=== PATIENT | female | born 1990 | race Caucasian/White ===

== ENCOUNTER 2024-12-20 16:31 | Emergency (ER) | payer OTHER, SELFPAY ==
--- OUTSIDE RECORDS SUMMARY | 2024-12-15 06:30 | XMS_ITS ---
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 Name Role Phone Yamilka Pop Primary Care Provider REASON FOR VISIT 3m weight loss Social History Sex Assigned At : Social History Observation Description Sex Assigned At Female Encounters Encounter Location Date Provider Diagnosis [address] [id number] 12/15/2024 Yamilka Pop Plan Of Treatment No Information Progress Notes * Jessica CERNA MDOB: 3 (34 yo F)Acc No.[id number]:12/15/2024 Medical Note Patient: Jessica TOMPKINS Provider: Corina Pop APRN, FNP-C :1990 A ge:34 Y S ex:Female Date:12/15/2024 Address:[address] [place] [address] [id number] Subjective: * Chief Complaints: * 1 . 3m weight loss. * Medical History: Objective: * Vitals: Assessment: Plan: * Treatment: * Billing Information: * Visit Code: * Procedure Codes: * Electronic signature of CHARITO Kat on 12/20/2024 at 05:34 PM EDT Sign off status: Pending * Provider: Corina Pop APRN, FNP-C Date: 0 12/15/2024 Generated for Cassi lay/Tori/eTransmitting on: 0 12/20/2024 05:34 PM EDT
[2024-12-20 16:42] VITALS: BP 107/71; PULSE 95; TEMP 37.2; O2SAT 97; BMI 39.9
--- OUTSIDE RECORDS SUMMARY | 2024-12-20 17:35 | XMS_ITS | Clinical Summary ---
Author Organization [facility] tem Address [id number] 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 Medications * This document contains information received from the source organization and may not represent a complete record from that organization. fluticasone propionate (FLONASE) 50 mcg/actuation nasal spray 2 08/28/19 19 Active loratadine (CLARITIN) 10 mg tablet 2 08/28/19 19 Active hydrOXYzine (ATARAX) 50 mg tablet Take 1 tablet (50 mg total) by mouth in the morning and 1 tablet (50 mg total) at noon and 1 tablet (50 mg total) in the evening. Active albuterol (PROVENTIL HFA;VENTOLIN HFA) 90 mcg/actuation inhalerIndications :COVID Inhale 2 puffs every 4 (four) hours as needed for wheezing. 18 g 10/29/19 22 Active ergocalciferol (DRISDOL) 1,250 mcg (50,000 unit) capsule Take 1 capsule (50,000 Units total) by mouth once a week. Active lamoTRIgine (LaMICtal) 25 mg tablet Take 1 tablet (25 mg total) by mouth in the morning. Active lllzjhpo-atav-FH-c alcium &mins (THERAGRAN-M) 9 mg iron-400 mcg tablet Take 1 tablet by mouth in the morning. Active vortioxetine (TRINTELLIX) 10 mg tablet Take 1 tablet (10 mg total) by mouth in the morning. Active ibuprofen (MOTRIN) 800 mg tablet Take 1 tablet (800 mg total) by mouth 3 (three) times a day. 21 tablet 01/05/20 24 Active Additional Information Patient taking differently:800 mg oralEvery 6 hours PRN, Reported on 06/15/2024 ARIPiprazole (ABILIFY) 2 mg tablet Take 5 tablets (10 mg total) by mouth in the morning. 11/28/19 24 Active benztropine (COGENTIN) 1 mg tablet Take 1 tablet (1 mg total) by mouth in the morning and 1 tablet (1 mg total) before bedtime. 11/29/19 24 Active cetirizine (ZyrTEC) 10 mg tablet Take 1 tablet (10 mg total) by mouth daily as needed. 11/26/19 24 Active OLANZapine (ZyPREXA) 5 mg tablet Take 1 tablet (5 mg total) by mouth daily as needed. 11/29/19 24 Active lidocaine (LIDODERM) 5 % Place 1 patch on the skin daily. Remove & Discard patch within 12 hours or as directed by MD 30 patch 01/20/20 24 Active lamoTRIgine (LaMICtal) 100 mg tablet Take 1 tablet (100 mg total) by mouth nightly. Active ibuprofen (MOTRIN) 800 mg tablet Take 1 tablet (800 mg total) by mouth 3 (three) times a day. 21 tablet 07/23/19 25 Active metFORMIN (GLUCOPHAGE) 500 mg tablet Take 1 tablet (500 mg total) by mouth daily with breakfast. Active acetaminophen (TYLENOL EXTRA STRENGTH) 500 mg tablet Take 2 tablets (1,000 mg total) by mouth every 6 (six) hours as needed for pain. 30 tablet 09/29/19 25 Active famotidine (PEPCID) 20 mg tablet Take 1 tablet (20 mg total) by mouth in the morning and 1 tablet (20 mg total) before bedtime. 20 tablet 09/29/19 25 Active sucralfate (CARAFATE) 1 gram tablet Take 1 tablet (1 g total) by mouth in the morning and 1 tablet (1 g total) at noon and 1 tablet (1 g total) in the evening. 21 tablet 09/29/19 25 Active ibuprofen (MOTRIN) 800 mg tablet Take 1 tablet (800 mg total) by mouth 3 (three) times a day. 21 tablet 10/15/19 25 Active diclofenac sodium (VOLTAREN) 1 % gel Apply 2 g topically in the morning and 2 g at noon and 2 g in the evening and 2 g before bedtime. 100 g 10/15/19 25 Active acetaminophen (TYLENOL EXTRA STRENGTH) 500 mg tablet Take 2 tablets (1,000 mg total) by mouth every 6 (six) hours as needed for pain. 30 tablet 10/15/19 25 Active ondansetron ODT (ZOFRAN ODT) 4 mg disintegrating tablet Dissolve 1 tablet (4 mg total) on tongue every 8 (eight) hours as needed for nausea for up to 10 doses. 10 tablet 11/28/19 25 Active ondansetron ODT (ZOFRAN ODT) 4 mg disintegrating tablet Dissolve 1 tablet (4 mg total) on tongue every 8 (eight) hours as needed for nausea for up to 10 doses. 10 tablet 10/26/19 22 025 Discontin ued(Dupli fernanda Listing) ondansetron ODT (ZOFRAN ODT) 4 mg disintegrating tablet Dissolve 1 tablet (4 mg total) on tongue 3 (three) times a day as needed for nausea for up to 3 doses. 3 tablet 03/01/20 24 025 Discontin ued(Dupli fernanda Listing) Active Problems Problem Noted Date Diagnosed Date Anxiety 02/10/2024 PTSD (post-traumatic stress disorder) 02/10/2024 Dizziness 03/09/2019 Difficulty hearing 03/09/2019 Bipolar II disorder 07/27/2017 Encounters Date Type Department Care Team Description 12/08/2024 9:59 AM EDT - 12/08/2024 12:25 PM EDT Emergency [facility] - Emergency [address] [place] [address] Rohit Cota MD Panic attack (Primary Dx); Chest pain, unspecified type Discharge Disposition: Home 12/08/2024 Travel 11/27/2024 10:55 AM EDT - 11/27/2024 12:55 PM EDT Emergency [facility] - Emergency [address] [place] [address] Rohit Cota MD Nausea and vomiting, unspecified vomiting type (Primary Dx); Abdominal pain, unspecified abdominal location Discharge Disposition: Home 10/14/2024 4:48 AM EDT - 10/14/2024 5:38 AM EDT Emergency [facility] - Emergency [address] [place] [address] Pelon Veliz MD Pain of right hip (Primary Dx); Acute pain of left shoulder; Acute nonintractable headache, unspecified headache type Discharge Disposition: Home 10/14/2024 Travel 09/28/2024 5:44 PM EDT - 09/28/2024 6:33 PM EDT Emergency [facility] - Emergency [address] [place] [address] Luiz Brandon MD Left upper quadrant pain (Primary Dx); Splenomegaly Discharge Disposition: Home 09/28/2024 Travel 09/27/2024 11:15 PM EDT - 09/28/2024 1:50 AM EDT Emergency [facility] - Emergency [address] [place] [address] Rohit Newell MD Left upper quadrant abdominal pain (Primary Dx); Splenomegaly; Acute cystitis without hematuria; Hypokalemia Discharge Disposition: Home 09/27/2024 Travel from Last 3 Months Family History Medical History Relation Name Comments Alcohol abuse Father Georges Cerna Heart attack Father Georges Cerna Heart disease Father Georges Cerna Breast cancer Maternal Aunt 1 Faina Briana Breast cancer Maternal Aunt 2 Summer Villanueva Diabetes Maternal Grandfather Josf Briana Heart attack Maternal Grandfather Josf Briana Stroke Maternal Grandfather Josf Briana Diabetes Maternal Grandmother Raeann Briana Alcohol abuse Maternal Uncle Kim Gerhary Cancer Maternal Uncle Kim Gerhary liver Robbi Breast Cancer Mother Windy Mosack Breast cancer Mother Windy Mosack Cancer Mother Windy Mosack bone Relation Name Status Comments Father Georges Cerna Maternal Aunt 1 Faina Briana Alive Maternal Aunt 2 Summer Villanueva Alive Maternal Grandfather Josf Briana Maternal Grandmother Raeann Warren Maternal Uncle Kim Espinal Mother Windy Cerna Social History Tobacco Use Types Packs/Day Years Used Date Smoking Tobacco: Every Day Cigarettes 0.5 4 Vaping/E-cigarettes Smokeless Tobacco: Never Tobacco Cessation:Ready to Q uit: Not Asked; Counseling Given: Not Answered Alcohol Use Standard Drinks/Week Comments Not Currently 1 (1 standard drink = 0.6 oz pur e alcohol) occasional Childcare Answer Date Recorded Childcare Unknown 09/08/2018 Employment Answer Date Recorded Employment Unknown 09/08/2018 Hunger Screening Answer Date Recorded Within the past 12 months we worried whether our food would run out before we got money to buy more. Never True 12/08/2024 Within the past 12 months th e food we bought just didn't last and we didn't have money to get more. Never True 12/08/2024 Purpose - Life Answer Date Recorded Purpose and direction in life Unknown Comments No Sex and Gender Information Value Date Recorded Sex Assigned at Not on file Legal Sex Female 5:42 AM EST Gender Identity Not on file Sexual Orientation Not on file Last Filed Vital Signs Vital Sign Reading Time Taken Comments Blood Pressure 122/83 12/08/2024 10:15 AM EDT Pulse 78 12/08/2024 10:15 AM EDT Temperature 36.5 C (97.7 F) 12/08/2024 11:16 AM EDT Respiratory Rate 13 12/08/2024 10:15 AM EDT Oxygen Saturation 98% 12/08/2024 10:15 AM EDT Inhaled Oxygen Concentration - - Weight 126.1 kg (278 lb) 12/08/2024 10:02 AM EDT Height 177.8 cm (5' 10 ) 12/08/2024 10:02 AM EDT Body Mass Index 39.89 12/08/2024 10:02 AM EDT Plan of Treatment Upcoming Encounters Date Type Department Care Team (Late st Contact Info) Description 12/21/2024 1:00 PM EDT Office Visit [facility] Pul[facility] [address] [place] [address] Yuko Chamberlain, AUDIO/VISUAL MANAGER-HAND TUFTER [address] [place] [address], [address] [place] [address] Health Maintenance Due Date Last Done Comments Tobacco Counseling 1992 Depression Screening 2004 Adult BMI Follow Up Plan 2010 DTaP,Tdap and Td Vaccines (6 - Td or Tdap) 05/06/2022 05/06/2012, 06/18/2010, 08/14/2004, Additional history exists COVID-19 Vaccine (3 - 2024-2 6 season) 2024 09/18/2020, 08/23/2020 Influenza Vaccine 11/28/2024 01/04/2019, , 03/04/2012, Additional history exists Adult BMI Screening 12/08/2025 12/08/2024 Tobacco Screening 12/08/2025 12/08/2024 Pap Smear 03/05/2026 03/05/2023, 12/0 09/2022, 04/15/2022, Additional history exists Medical Devices Not on file Procedures Procedure Name Priority Date/Time Associated Diagnosis Comments TROP I, HIGH SENSITIVITY 1 HOUR STAT 12/08/2024 11:19 AM EDT XR CHEST 1 VW STAT 12/08/2024 10:56 AM EDT EXTRA TUBES SST TOP Routine 12/08/2024 1 0:19 AM EDT EXTRA TUBES Routine 12/08/2024 10:19 AM EDT TROPONIN I, HIGH SENSITIVITY 0 HOUR STAT 12/08/2024 10:19 AM EDT TROPONIN I, HIGH SENSITIVITY 0 HOUR STAT 12/08/2024 10:19 AM EDT MAGNESIUM STAT 12/08/2024 10:19 AM EDT D-DIMER STAT 12/08/2024 10:19 AM EDT COMPREHENSIVE METABOLIC PANEL STAT 12/08/2024 10:19 AM EDT CBC WITH AUTO DIFFERENTIAL STAT 12/08/2024 10:19 AM EDT ECG 12-LEAD STAT 12/08/2024 10:04 AM EDT TROP I, HIGH SENSITIVITY 1 HOUR STAT 11/27/2024 12:[address] ABDOMEN AND PELVIS W CONT STAT 11/27/2024 11:54 AM EDT POCT , URINE (NUCG) Routine 11/27/2024 11:25 AM EDT POCT NURSING URINE MACROSCOPIC UA Routine 11/27/2024 11:23 AM EDT ER EXTRA URINE MARBLE STAT 11/27/2024 11:07 AM EDT ER EXTRA URINE CULTURE STAT 11/27/2024 11:07 AM EDT ER EXTRA URINE STAT 11/27/2024 11:07 AM EDT BLUE TOP STAT 11/27/2024 11:04 AM EDT LIPASE STAT Add-on 11/27/2024 11:04 AM EDT RAINBOW DRAW STAT 11/27/2024 11:04 AM EDT TROPONIN I, HIGH SENSITIVITY 0 HOUR STAT 11/27/2024 11:04 AM EDT COMPREHENSIVE METABOLIC PANEL STAT 11/27/2024 11:04 AM EDT CBC WITH AUTO DIFFERENTIAL STAT 11/27/2024 11:04 AM EDT TROPONIN I, HIGH SENSITIVITY 0 HOUR STAT 11/27/2024 11:04 AM EDT ECG 12-LEAD STAT 11/27/2024 10:59 AM EDT POCT , URINE (NUCG) Routine 10/14/2024 5:[address] ABDOMEN AND PELVIS W CONT STAT 09/28/2024 12:22 AM EDT POCT , URINE (NUCG) Routine 09/27/2024 11:46 PM EDT POCT NURSING URINE MACROSCOPIC UA Routine 09/27/2024 11:44 PM EDT ER EXTRA URINE STAT 09/27/2024 11:34 PM EDT ER EXTRA URINE CULTURE STAT 09/27/2024 11:33 PM EDT LAVENDER TOP STAT 09/27/2024 11:32 PM EDT PST TOP STAT 09/27/2024 11:32 PM EDT BLUE TOP STAT 09/27/2024 11:32 PM EDT MONONUCLEOSIS TEST STAT Add-on 09/27/2024 11 :32 PM EDT LIPASE STAT Add-on 09/27/2024 11:32 PM EDT LIVER PANEL STAT Add-on 09/27/2024 11:32 PM EDT BASIC METABOLIC PANEL STAT Add-on 09/27/2024 11:32 PM EDT CBC WITH AUTO DIFFERENTIAL STAT Add-on 09/27/2024 11:32 PM EDT RAINBOW DRAW STAT 09/27/2024 11:32 PM EDT HIGH RISK HPV W/JOLLY Routine 03/05/2023 5:42 AM EST Encounter for screening for malignant neoplasm of cervix Encounter for screening for human papillomavirus (HPV) from Last 3 Months or Most Recently Relevant to Health Maintenance Results * Troponin I, High Sensitivity 1 Hour (12/08/2024 11:19 AM EDT) Only the most recent of2 resultswithin the time period is included. TROPONIN I, HIGH SENSITIVITY <2 <16 ng/L 12/08/2024 11:45 AM EDT [facility] Blood Venous blood / Unknown Venipuncture / Unknown 12/08/2024 11:19 AM EDT 12/08/2024 11:20 AM EDT us Ximena IVERSON LAB BLOOD ORDERABLES Final Result [facility] [address] [place] [address], [place] * X-ray chest 1 view (12/08/2024 10:56 AM EDT) Anatomical Region Laterality Modality Body, Chest N/A Computed Radiogr aphy 12/08/2024 10:5 8 AM EDT Narrative 12/08/2024 10:59 AM EDT CLINICAL HISTORY: Chest pain Comparison: 04/20/2023 Views: 1 view FINDINGS: * No acute infiltrate. No volume loss nor consolidation. There is no pleural effusion, pneumothorax, nor volume loss. Heart and mediastinal structures are unremarkable. Pulmonary vasculature stable. IMPRESSION: * No active disease nor significant change Finalized by Nicholas Beard MD on 12/08/2024 10:59 AM Procedure Note Nicholas Beard MD - 12/08/2024 CLINICAL HISTORY: Chest pain Comparison: 04/20/2023 Views: 1 view FINDINGS: * No acute infiltrate. No volume loss nor consolidation. There is nopleural effusion, pneumothorax, nor volume loss. Heart and mediastinalstructures are unremarkable. Pulmonary vasculature stable. IMPRESSION: * No active disease nor significant change Finalized by Nicholas Beard MD on 12/08/2024 10:59 AM us Ximena IVERSON IMG DIAGNOSTIC IMAGING ORD ERABLES Final Result * Troponin I, High Sensitivity 0 Hour (12/08/2024 10:19 AM EDT) Only the most recent of2 resultswithin the time period is included. TROPONIN I, HIGH SENSITIVITY <2 <16 ng/L 12/08/2024 10:52 AM EDT [facility] Blood Venous blood / Unknown Venipuncture / Unknown 12/08/2024 10:19 AM EDT 12/08/2024 10:25 AM EDT us Ximena Castaneda AUDIO/VISUAL MANAGER-HARVEY LAB BLOOD ORDERABLES Final Result Performing Organization Address City/[facility]/ZIP Co de Phone Number [address] [place] [address], [place] * SST TOP (12/08/2024 10:19 AM EDT) Extra Tube Auto Resulted 12/08/2024 12:01 PM EDT [facility] Blood Venous blood / Unknown 12/08/2024 10:19 AM EDT 12/08/2024 10:26 AM EDT us Rohit Cota MD LAB BLOOD ORDERABLES Final Re sult Performing Organization Address City/[facility]/ZIP Co de Phone Number [address] [place] [address], [place] * CBC auto differential (12/08/2024 10:19 AM EDT) Only the most recent of3 resultswithin the time period is included. WBC 8.8 4 - 11 x10E9/L 12/08/2024 10:30 AM EDT [facility] RBC Count 4.47 3.8 - 5.2 X10E12/L 12/08/2024 10:30 AM EDT [facility] Hemoglobin 12.6 11.7 - 15.5 g/dL 12/08/2024 10:30 AM EDT [facility] Hematocrit 36.9 35 - 47 % 12/08/2024 10:30 AM EDT [facility] MCV 83 80 - 100 fL 12/08/2024 10:30 AM EDT [facility] MCH 28.2 27 - 34 pg 12/08/2024 10:30 AM EDT [facility] MCHC 34.2 32 - 36 g/dL 12/08/2024 10:30 AM EDT [facility] RDW 13.4 11.5 - 15 % 12/08/2024 10:30 AM EDT [facility] Platelet Count 289 150 - 450 X10E9/L 12/08/2024 10:30 AM EDT [facility] MPV 7.7 7 - 12 fL 12/08/2024 10:30 AM EDT [facility] Neutrophils % 66.5 % 12/08/2024 10:30 AM EDT [facility] Lymphocytes % 26.8 % 12/08/2024 10:30 AM EDT [facility] Monocytes % 5.5 % 12/08/2024 10:30 AM EDT [facility] Eosinophils % 0.4 % 12/08/2024 10:30 AM EDT [facility] Basophils % 0.8 % 12/08/2024 10:30 AM EDT [facility] Neutrophils Absolute (A) 5.9 1.5 - 6.6 10*3/uL 12/08/2024 10:30 AM EDT [facility] Lymphocytes Absolute 2.4 1.0 - 3.5 10*3/uL 12/08/2024 10:30 AM EDT [facility] Monocytes Absolute 0.5 0.0 - 0.9 10*3/uL 12/08/2024 10:30 AM EDT [facility] Eosinophils Absolute 0.0 0.0 - 0.4 10*3/uL 12/08/2024 10:30 AM EDT [facility] Basophils Absolute 0.1 0.0 - 0.2 10*3/uL 12/08/2024 10:30 AM EDT [facility] Differential Type AUTOMATED DIFFERENTIAL 12/08/2024 10:30 AM EDT [facility] Blood Venous blood / Unknown Venipuncture / Unknown 12/08/2024 10:19 AM EDT 12/08/2024 10:25 AM EDT us Ximena Castaneda AUDIO/VISUAL MANAGER-HAND TUFTER LAB BLOOD ORDERABLES Final Result Performing Organization Address [facility] de Phone Number [address] [place] [address], [place] * D-Dimer (12/08/2024 10:19 AM EDT) D DIMER <150 1 - 255 ng/mL 12/08/2024 11:09 AM EDT [facility] Comment:Results <255 ng/mL D DU: The presensence of a VTE can safely be excluded with a negative D-Dimer result and Wells score. A negative result doesn't exclude the possibility of DIC. The test should be repeated along with other diagnostic tests if the patient's symptoms persist or worsen. Blood Venous blood / Unknown Venipuncture / Unknown 12/08/2024 10:19 AM EDT 12/08/2024 10:26 AM EDT us Bueno Leonel DE GUZMAN-HAND TUFTER LAB BLOOD ORDERABLES Final Result Performing Organization Address [facility] de Phone Number [address] [place] [address], [place] * Magnesium (12/08/2024 10:19 AM EDT) MAGNESIUM 1.8 1.8 - 2.6 mg/dL 12/08/2024 10:45 AM EDT [facility] Blood Venous blood / Unknown Venipuncture / Unknown 12/08/2024 10:19 AM EDT 12/08/2024 10:25 AM EDT us Ximena Castaneda AUDIO/VISUAL MANAGER-HAND TUFTER LAB BLOOD ORDERABLES Final Result [facility] [address] [place] [address], * (ABNORMAL) Comprehensive metabolic panel (12/08/2024 10:19 AM EDT) Only the most recent of2 resultswithin the time period is included. SODIUM 138 134 - 146 mmol/L 12/08/2024 10:45 AM EDT [facility] POTASSIUM 3.8 3.5 - 5.0 mmol/L 12/08/2024 10:45 AM EDT [facility] CHLORIDE 105 98 - 109 mmol/L 12/08/2024 10:45 AM EDT [facility] CARBON DIOXIDE 23 22 - 32 mmol/L 12/08/2024 10:45 AM EDT [facility] ANION GAP 10 5 - 15 mmol/L 12/08/2024 10:45 AM EDT [facility] BLOOD UREA NITROGEN 11 5 - 23 mg/dL 12/08/2024 10:45 AM EDT [facility] CREATININE 0.94 0.40 - 1.00 mg/dL 12/08/2024 10:45 AM EDT [facility] Comment:METHOD TRACEABLE TO IDMS STANDARD GLUCOSE 103(H) 65 - 99 mg/dL 12/08/2024 10:45 AM EDT [facility] CALCIUM 8.6 8.5 - 10.5 mg/dL 12/08/2024 10:45 AM EDT [facility] TOTAL PROTEIN 6.6 6.0 - 8.0 g/dL 12/08/2024 10:45 AM EDT [facility] ALBUMIN 3.5 3.2 - 5.3 g/dL 12/08/2024 10:45 AM EDT [facility] ALKALINE PHOSPHATASE 73 39 - 130 U/L 12/08/2024 10:45 AM EDT [facility] AST 16 <=41 U/L 12/08/2024 10:45 AM EDT [facility] ALT 16 <=31 U/L 12/08/2024 10:45 AM EDT [facility] BILIRUBIN,TOTAL 0.4 0.3 - 1.2 mg/dL 12/08/2024 10:45 AM EDT [facility] EGFR Non-Race Dependent 83 >=60 ml/min/1.7 3sq.m 12/08/2024 10:45 AM EDT [facility] Comment: eGFR not reported due to non-numeric value for Creatinine. Reported eGFR is based on the CKD-EPI 2020 equation that does not use a race coefficient. Blood Venous blood / Unknown Venipuncture / Unknown 12/08/2024 10:19 AM EDT 12/08/2024 10:25 AM EDT Ximena Castaneda AUDIO/VISUAL MANAGER-HAND TUFTER LAB BLOOD ORDERABLES Final Result Performing Organization Address City/[facility]/ZIP Co de Phone Number [facility] [address] [place] [address], [place] * ECG 12 lead (12/08/2024 10:04 AM EDT) Only the most recent of2 resultswithin the time period is included. 12/08/2024 10:0 4 AM EDT Rohit Cota MD ECG ORDERABLES Final Result Performing Organization Address City/[facility]/ZIP Co de Phone Number [facility] * CT abdomen and pelvis with contrast (11/27/2024 11:54 AM EDT) Only the most recent of2 resultswithin the time period is included. Anatomical Region Laterality Modality Body, Abdomen, Body Covera N/A Compu brendan Tomography 11/27/2024 12:0 6 PM EDT Narrative 11/27/2024 12:[address] ABDOMEN/PELVIS WITH IV CONTRAST HISTORY:Right lower quadrant abdominal pain vomiting, TECHNIQUE: 100 mL of Omnipaque 300 nonionic contrast injected intravenously. Axial images obtained from the lung bases to the pubic symphysis with sagittal and coronal 2D reformatted images. Automated dose reduction techniques utilized. COMPARISON: 09/28/2024 FINDINGS: Lung bases are clear. No pericardial effusion. Liver demonstrates normal morphology without focal suspicious lesion. No biliary ductal dilatation. Gallbladder is surgically absent. The pancreas appears within normal limits. Stable prominent size of the spleen, measuring up to 15 cm in craniocaudal diameter. Kidneys and adrenals appear normal. No urinary collecting system dilatation. Stomach, small bowel and colon appear normal. The appendix is visualized and normal. Abdominal aorta is nonaneurysmal. No retroperitoneal lymphadenopathy. Urinary bladder and pelvic structures appear unremarkable. IUD is present within the uterus. No free intraperitoneal air or fluid collection. Abdominal wall appears unremarkable. No acute osseous abnormality. IMPRESSION: * No acute intraabdominal pathology identified. All CT scans at this facility use dose modulation, iterative reconstruction, and/or weight based dosing when appropriate to reduce radiation dose to as low as reasonably achievable. Finalized by Dulce Soler MD on 11/27/2024 12:12 PM Procedure Note Dulce Soler MD - 11/27/2024 CT ABDOMEN/PELVIS WITH IV CONTRAST HISTORY:Right lower quadrant abdominal pain vomiting, TECHNIQUE: 100 mL of Omnipaque 300 nonionic contrast injected intravenously. Axialimages obtained from the lung bases to the pubic symphysis with sagittaland coronal 2D reformatted images. Automated dose reduction techniquesutilized. COMPARISON: 09/28/2024 FINDINGS: Lung bases are clear. No pericardial effusion. Liver demonstrates normal morphology without focal suspicious lesion. Nobiliary ductal dilatation. Gallbladder is surgically absent. The pancreas appears within normal limits. Stable prominent size of thespleen, measuring up to 15 cm in craniocaudal diameter. Kidneys and adrenals appear normal. No urinary collecting systemdilatation. Stomach, small bowel and colon appear normal. The appendix is visualizedand normal. Abdominal aorta is nonaneurysmal. No retroperitoneal lymphadenopathy. Urinary bladder and pelvic structures appear unremarkable. IUD is presentwithin the uterus. No free intraperitoneal air or fluid collection. Abdominal wall appears unremarkable. No acute osseous abnormality. IMPRESSION: * No acute intraabdominal pathology identified. All CT scans at this facility use dose modulation, iterativereconstruction, and/or weight based dosing when appropriate to reduceradiation dose to as low as reasonably achievable. Finalized by Dulce Soler MD on 11/27/2024 12:12 PM us Corrina Summers AUDIO/VISUAL MANAGER-HAND TUFTER IMG CT ORDERABLES Fin al Result * POCT , urine (11/27/2024 11:25 AM EDT) Only the most recent of3 resultswithin the time period is included. POC Urine Negative Negative, Indeterminate 11/27/2024 11:19 AM EDT [facility] Urine 11/27/2024 11:2 5 AM EDT 11/27/2024 11:19 AM EDT us POINT OF CARE TEST ORDERABLES Fi nal Result Performing Organization Address City/State/[facility] Co de Phone Number [facility] [address] [place] [address], * (ABNORMAL) POCT Nursing Urine Macroscopic UA (11/27/2024 11:23 AM EDT) Only the most recent of2 resultswithin the time period is included. Pathologist [facility] POC Urine Specific [place] 1.020 1.010, 1.015, 1.020, 1.025 11/27/2024 11:13 AM EDT [facility] POC Urine Leukocyte Esterase Moderate(A) Negative 11/27/2024 11:13 AM EDT [facility] POC Urine Nitrite Negative Negative 11/27/2024 11:13 AM EDT [facility] POC Urine pH 7.0 5.0, 6.0, 6.5, 7.0, 7.5, 8.0, 8.5, 5.5 11/27/2024 11:13 AM EDT [facility] POC Urine Protein Negative Negative 11/27/2024 11:13 AM EDT [facility] POC Urine Glucose Negative Negative 11/27/2024 11:13 AM EDT [facility] POC Urine Ketones Negative Negative 11/27/2024 11:13 AM EDT [facility] POC Urine Urobilinogen 0.2 E.U./dL 11/27/2024 11:13 AM EDT [facility] POC Urine Bilirubin Negative Negative 11/27/2024 11:13 AM EDT [facility] POC Urine Blood/HGB Negative Negative 11/27/2024 11:13 AM EDT [facility] Urine 11/27/2024 11:2 3 AM EDT 11/27/2024 11:13 AM EDT us POINT OF CARE TEST ORDERABLES Fi nal Result Performing Organization Address City/[facility]/ZIP Co de Phone Number [address] [place] [address], [place] * Extra Urine [place] (11/27/2024 11:07 AM EDT) Extra Tube Auto Resulted 11/27/2024 1:01 PM EDT [facility] Urine Urine specimen collection, clean catch / Unknown 11/27/2024 11:07 AM EDT 11/27/2024 11:36 AM EDT us Rohit Cota MD URINE ORDERABLES Final Result Performing Organization Address City/[facility] Co de Phone Number [address] [place] [address], [place] * Extra Urine Culture (11/27/2024 11:07 AM EDT) Only the most recent of2 resultswithin the time period is included. Extra Tube Auto Resulted 11/27/2024 1:01 PM EDT [facility] Urine Urine specimen collection, clean catch / Unknown 11/27/2024 11:07 AM EDT 11/27/2024 11:36 AM EDT us Rohit Cota MD URINE ORDERABLES Final Result Performing Organization Address [facility] Co de Phone Number [address] [place] [address], [place] * Extra Urine (11/27/2024 11:07 AM EDT) Only the most recent of2 resultswithin the time period is included. Extra Tube Auto Resulted 11/27/2024 1:01 PM EDT [facility] Urine Urine specimen collection, clean catch / Unknown 11/27/2024 11:07 AM EDT 11/27/2024 11:36 AM EDT us Rohit Cota MD URINE ORDERABLES Final Result Performing Organization Address [facility] de Phone Number [address] [place] [address], [place] * Light Blue Top (11/27/2024 11:04 AM EDT) Only the most recent of2 resultswithin the time period is included. Extra Tube Auto Resulted 11/27/2024 1:01 PM EDT [facility] Blood Venous blood / Unknown Port / Unknown 11/27/2024 11:04 AM EDT 11/27/2024 11:09 AM EDT us Rohit Cota MD LAB BLOOD ORDERABLES Final Re sult Performing Organization Address City/[facility] Co de Phone Number [address] [place] [address], [place] * Lipase (11/27/2024 11:04 AM EDT) Only the most recent of2 resultswithin the time period is included. LIPASE 21 17 - 40 U/L 11/27/2024 11:40 AM EDT [facility] Blood Venous blood / Unknown Port / Unknown 11/27/2024 11:04 AM EDT 11/27/2024 11:09 AM EDT us Corrina Summers APRN-HAND TUFTER LAB BLOOD ORDERABLES Final Result Performing Organization Address City/[facility]/ZIP Co de Phone Number [address] [place] [address], [place] * Lavender Top (09/27/2024 11:32 PM EDT) Extra Tube Auto Resulted 09/28/2024 1:01 AM EDT [facility] Blood Venous blood / Unknown 09/27/2024 11:32 PM EDT 09/28/2024 12:01 AM EDT us Rohit Newell MD LAB BLOOD ORDERABLES Final Resul t Performing Organization Address [facility] Co de Phone Number [address] [place] [address], [place] * PST TOP (09/27/2024 11:32 PM EDT) Extra Tube Auto Resulted 09/28/2024 1:01 AM EDT [facility] Blood Venous blood / Unknown 09/27/2024 11:32 PM EDT 09/28/2024 12:01 AM EDT us Rohit Newell MD LAB BLOOD ORDERABLES Final Resul t Performing Organization Address City/[facility] Co de Phone Number [address] [place] [address], [place] * Mononucleosis test (09/27/2024 11:32 PM EDT) MONO TEST Negative Negative 09/28/2024 1:20 AM EDT [facility] Blood Venous blood / Unknown 09/27/2024 11:32 PM EDT 09/28/2024 12:01 AM EDT us Rohit Newell MD LAB BLOOD ORDERABLES Final Resul t Performing Organization Address [facility] Co de Phone Number [facility] [address] [place] [address], [place] * Liver panel (09/27/2024 11:32 PM EDT) TOTAL PROTEIN 6.6 6.0 - 8.0 g/dL 09/28/2024 1:15 AM EDT [facility] ALBUMIN 3.7 3.2 - 5.3 g/dL 09/28/2024 1:15 AM EDT [facility] BILIRUBIN,TOTAL 0.6 0.3 - 1.2 mg/dL 09/28/2024 1:15 AM EDT [facility] ALKALINE PHOSPHATASE 75 39 - 130 U/L 09/28/2024 1:15 AM EDT [facility] AST 19 <=41 U/L 09/28/2024 1:15 AM EDT [facility] ALT 21 <=31 U/L 09/28/2024 1:15 AM EDT [facility] BILIRUBIN,DIRECT 0.1 <=0.4 mg/dL 09/28/2024 1:15 AM EDT [facility] Blood Venous blood / Unknown 09/27/2024 11:32 PM EDT 09/28/2024 12:01 AM EDT us Rohit Newell MD LAB BLOOD ORDERABLES Final Resul t Performing Organization Address City/[facility] Co de Phone Number [facility] [address] [place] [address], [place] * (ABNORMAL) Basic Metabolic Panel (09/27/2024 11:32 PM EDT) SODIUM 136 134 - 146 mmol/L 09/28/2024 1:15 AM EDT [facility] POTASSIUM 3.4(L) 3.5 - 5.0 mmol/L 09/28/2024 1:15 AM EDT [facility] CHLORIDE 104 98 - 109 mmol/L 09/28/2024 1:15 AM EDT [facility] CARBON DIOXIDE 24 22 - 32 mmol/L 09/28/2024 1:15 AM EDT [facility] ANION GAP 8 5 - 15 mmol/L 09/28/2024 1:15 AM EDT [facility] BLOOD UREA NITROGEN 10 5 - 23 mg/dL 09/28/2024 1:15 AM EDT [facility] CREATININE 1.10(H) 0.40 - 1.00 mg/dL 09/28/2024 1:15 AM EDT [facility] Comment:METHOD TRACEABLE TO IDMS STANDARD GLUCOSE 89 65 - 99 mg/dL 09/28/2024 1:15 AM EDT [facility] CALCIUM 8.8 8.5 - 10.5 mg/dL 09/28/2024 1:15 AM EDT [facility] EGFR Non-Race Dependent 69 >=60 ml/min/1.7 3sq.m 09/28/2024 1:15 AM EDT [facility] Comment: eGFR not reported due to non-numeric value for Creatinine. Reported eGFR is based on the CKD-EPI 2020 equation that does not use a race coefficient. Blood Venous blood / Unknown 09/27/2024 11:32 PM EDT 09/28/2024 12:01 AM EDT us Rohit Newell MD LAB BLOOD ORDERABLES Final Resul t [facility] [address] [facility] [place] [address], * (ABNORMAL) High risk HPV w/jolly (03/05/2023 5:42 AM EST) Hpv specimen type ThinPrep 03/06/2023 5:43 AM EST [facility] Hpv 16 Negative Negative^ Negative 03/07/2023 6:21 AM EST [facility] Hpv 18 Negative Negative^ Negative 03/07/2023 6:21 AM EST [facility] Other high risk hpv Positive(A) Negative^ Negative 03/07/2023 6:21 AM EST [facility] Comment: For the DNA of any or combination of the following HPV types: 31,33,35,45, 52,56,58,59,66 and 68. THINP 03/05/2023 5:42 AM EST 03/06/2023 5:43 AM EST us Francoise Tamez MD LAB BLOOD ORDERABLES Final Resul t [place] [id number] [facility], [place] [address] [facility] [address] [place] [address], [address] [place] [address] from Last 3 Months or Most Recently Relevant to Health Maintenance Insurance [facility] MEDICAID [facility] MEDICAID [facility] MEDICAID WORKERS COMPENSATION Care Teams Mill Operator Relationship Specialty Start Date End Date Services, [place] [id number] [facility] [place] [place] PCP - General Family Medicine 01/05/24
--- OUTSIDE RECORDS SUMMARY | 2024-12-20 17:35 | XMS_ITS | Encounter Summary ---
Author Organization [facility] [employer] s tem Address [id number] [address] [place] [address] Care Team Providers Care Truck Driver Name Role Phone Services, [facility] Primary Care Provider Encounter Details Date Type Department Care Team (Latest Contact Info) Description 12/08/2024 Travel Social History Tobacco Use Types Packs/Day Years Used Date Smoking Tobacco: Every Day Cigarettes 0.5 4 Vaping/E-cigarettes Smokeless Tobacco: Never Alcohol Use Standard Drinks/Week Comments Not Currently [...] on file Sexual Orientation Not on file documented as of this encounter Plan of Treatment Upcoming Encounters Date Type Department Care Team (Late st Contact Info) Description 12/21/2024 1:00 PM EDT Office Visit [facility] Pulmonary/Sleep Medicine [address] [place] [phone] Yuko Chamberlain, BOOKMOBILE LIBRARIAN-AERIAL CROP DUSTER [address] [place] [address], [address] [place] [address] documented as of this encounter Visit Diagnoses Not on filedocumented in this encounter Care Teams Truck Driver Relationship Specialty Start Date End Date [facility], [facility] [address] [place], [place] PCP - General Family Medicine 01/05/24 documented as of this encounter
--- OUTSIDE RECORDS SUMMARY | 2024-12-20 17:35 | XMS_ITS | Encounter Summary ---
Author Organization [employer] s [employer] Address [facility][id number] [address] [place] [address] Care Team Providers Care Bag Loader Machine Operator Name Role Phone Services, [facility] Primary Care Provider Encounter Details Date Type Department Care Team ([facility] st Contact Info) Description 09/09/2021 Telephone [facility] Obstetrics/Gynecology [address] [place] [phone] Apple Vazquez, MRI SUPERVISOR-CN [address] [place], [place] [phone] Social History Tobacco Use Types Packs/Day Years Used Date Smoking Tobacco: Every Day Cigarettes 0.5 4 Vaping/E-cigarettes Smokeless Tobacco: Never Alcohol Use Standard Drinks/Week Comments Yes 0 (1 standard drink = 0.6 oz pur e alcohol) occasional Childcare Answer Date Recorded Childcare Unknown 09/08/2018 Employment Answer Date Recorded Employment Unknown 09/08/2018 Purpose - Life Answer Date Recorded Purpose and direction in life Unknown Comments No Sex and Gender Information Value Date Recorded Sex Assigned at Not on file Legal Sex Female 5:42 AM EST Gender Identity Not on file Sexual Orientation Not on file documented as of this encounter Miscellaneous Notes * Telephone Encounter - Felipa Barbosa - 09/09/2021 10:07 AM EDT Patient called in stating she is 5 days late for her period and has taken two tests that were negative, could you order a beta HCG for her? Please advise. documented in this encounter Plan of Treatment Upcoming Encounters Date Type Department Care Team (Late st Contact Info) Description 12/21/2024 1:00 PM EDT Office Visit [facility] Pulmonary/Sleep Medicine [address] [place] [address] Yuko Chamberlain, MRI SUPERVISOR-BRAKE RELINER [address], [address] [place] [address] documented as of this encounter Visit Diagnoses Not on filedocumented in this encounter Additional Health Concerns Infection Onset Date Last Indicated Resolved Time COVID-19 Rule-Out 07/06/2022 07/06/2022 07/06/2022 5:32 PM EDT COVID-19 Rule-Out 05/09/2023 05/09/2023 05/09/2023 6:43 AM EST Influenza 05/09/2023 05/09/2023 05/16/2023 11:1 2 PM EST documented as of this encounter Care Teams Bag Loader Machine Operator Relationship Specialty Start Date End Date Services, [facility] [address] [place] PCP - General Family Medicine 01/05/24 documented as of this encounter
--- OUTSIDE RECORDS SUMMARY | 2024-12-20 17:35 | XMS_ITS | Encounter Summary ---
Author Organization [facility] Address [address] [place] [address] Care Team Providers Care Margarine Maker Name Role Phone Navdeep Garcia MD Primary Care Provider Encounter Details Date Type Department Care Team (Latest Contact Info) Description 09/17/2012 Anesthesia Historic Record Initial Department Assigned, To Be 1 scan: REGIONAL [EPIDURAL - CONTINUOUS] Social History Tobacco Use Types Packs/Day Years Used Date Smoking Tobacco: Never Comments No Sex and Gender Information Value Date Recorded Sex Assigned at Not on file Legal Sex Female 9:23 AM EST Gender Identity Not on file Sexual Orientation Not on file documented as of this encounter Functional Status * Gait/Transfer impairment? Answer Date of Assessment Author No 09/17/2012 12:00 AM Ines Thompson RN * ADL impairment? Answer Date of Assessment Author No 09/17/2012 12:00 AM Ines Thompson RN documented as of this encounter Plan of Treatment Not on file documented as of this encounter Visit Diagnoses Not on filedocumented in this encounter Care Teams Margarine Maker Relationship Specialty Start Date End Date Navdeep Garcia MD [address] [place] [phone] PCP - General 02/18/10 documented as of this encounter
--- OUTSIDE RECORDS SUMMARY | 2024-12-20 17:35 | XMS_ITS | Encounter Summary ---
Author Organization [facility] Address [address] [place] [address] Care Team Providers Care Management Sme Name Role Phone Navdeep Garcia MD Unavailable [phone] Navdeep Garcia MD Primary Care Provider Encounter Details Date Type Department Care Team (Late st Contact Info) Description 07/06/1998 Office Visit [facility] Internal Medicine [address] [place] [phone] Betty Rosado MD [address] [place] [address] Social History Tobacco Use Types Packs/Day Years Used Date Smoking Tobacco: Never Assessed Comments Unknown Sex and Gender Information Value Date Recorded Sex Assigned at Not on file Legal Sex Female 9:23 AM EST Gender Identity Not on file Sexual Orientation Not on file documented as of this encounter Plan of Treatment Not on file documented as of this encounter Visit Diagnoses Not on filedocumented in this encounter Care Teams Management Sme Relationship Specialty Start Date End Date Navdeep Garcia MD [address] [place] [phone] PCP - Family Practice 08/17/06 0 Navdeep Garcia MD [address] [place] [phone] PCP - General 02/18/10 documented as of this encounter
--- OUTSIDE RECORDS SUMMARY | 2024-12-20 17:35 | XMS_ITS | Clinical Summary ---
Author Organization [facility] Address [address] [place] [address] Care Team Providers Care Slate Picker Name Role Phone Navdeep Garcia MD Primary Care Provider Source Comments The following information is NOT included in Care Everywhere downloads:Psychiatric notes, ECG results, Cardiac Rehab notes, Pulmonary Function notes, data from [employer] (includes but not limited toPregnancy data,audiograms, eye exams, pre-surgical evaluation notes, well-child exam data).[facility] Allergies Active Allergy Reactions Criticality Noted Date Comments No Known Drug Allergies 11/01/1999 Topiramate 05/04/2020 Depth perception is off and anxiety Medications Rexulti 4 MG TABS tablet 1 Active buPROPion ER (WELLBUTRIN XL) 150 MG XL tablet 1 Active busPIRone (BUSPAR) 10 MG tablet 1 Active fluticasone (FLONASE) 50 mcg/act nasal inhaler SHAKE LQ AND U 1 TO 2 SPRAYS IEN D 9 Active hydrOXYzine (ATARAX) 50 MG tablet 1 Active loratadine (CLARITIN) 10 MG tablet TK 1 T PO D PRF ALLERGIES 9 Active nitrofurantoin monohydrate macrocrystal (MACROBID) 100 MG capsule 1 Active ibuprofen (MOTRIN) 800 MG tablet Take 800 mg by mouth. 9 Active omeprazole (PRILOSEC) 20 MG capsule 1 Active oxcarbazepine (TRILEPTAL) 600 MG tablet 1 Active prazosin (MINIPRESS) 1 mg capsule 1 Active amoxicillin (AMOXIL) 500 MG capsule 0 Active chlorhexidine (PERIDEX) 0.12 % oral solution Take 15 mL by mouth 2 times daily. Rinse 15 mL in mouth for 2 minutes two times daily and spit out. Do not swallow. 1 Bottle 1 Active Active Problems Problem Noted Date Diagnosed Date Difficulty hearing 03/09/2019 Dizziness 03/09/2019 Anxiety disorder 07/27/2017 Bipolar II disorder 07/27/2017 Active labor 09/17/2012 Attention deficit hyperactivity disorder (ADHD) 04/15/2002 Overview (07/10/2018): Attention deficit disorder with hyperactivity Acute suppurative otitis med ia without spontaneous rupture of ear drum 10/05/2001 Allergic rhinitis 04/08/2001 Immunizations Immunization Administration Dates Next Due DTP (CVX=01) 06/27/1993,04/25/1993,02/12/1993 DTaP (CVX=20) 11/20/1997,03/13/1994 HPV, quadrivalent (Gardasil 4) (CVX=62) 02/10/2011,09/10/2010 Hep A (peds/adol, 2 dose) (CVX=83) 02/10/2011, Hep B (peds/adol, 3-dose) (CVX=08) 06/27/1993,,1992 Hib, unspecified formulation (CVX=17) ,06/27/1993,04/25/1993,02/12 Influenza, Injectable, MDCK, Quadrivalent, Preservative Free (ECW=570) 01/04/2019 Influenza, injectable, triva lent, preservative (DGA=470) 12/28/2012,02/10/2011 Influenza, unspecified formu lation (CVX=88) 03/04/2012 MMR, Gwfouox-Vlmjm-Czjfzyu (CVX=03) 09/28/2000,1 05/14/1993 Meningococcal conjugate (MCV4,Men-ACWY), Menactra (MCV4P) (BDJ=983) 06/18/2010 [employer] Monovalent (12+ yrs) SARS-COV-2 (COVID-19) vaccine, mRNA, spike protein, LNP, pres. free, 30 mcg/0.3mL dose (KOA=775) 08/23/2020 Polio, oral (OPV) (CVX=02) 11/20/1997,,04/25/1993,02/12 Td (adult), unspecified form ulation (YHQ=889) 08/14/2004 Tdap (LNV=442) 05/06/2012,06/18/2010 Family History Medical History Relation Name Comments Diabetes Mellitus Maternal Grandmother Breast Cancer Mother Cancer Mother marley sarcoma a t age 13. Relation Name Status Comments Maternal Grandmother Mother 2007 Social History Tobacco Use Types Packs/Day Years Used Date Smoking Tobacco: Never Tobacco Cessation:Counseling Given: Yes Comments No Sex and Gender Information Value Date Recorded Sex Assigned at Not on file Legal Sex Female 9:23 AM EST Gender Identity Not on file Sexual Orientation Not on file Last Filed Vital Signs Vital Sign Reading Time Taken Comments Blood Pressure 111/64 05/16/2020 2:00 PM EST Pulse 95 05/16/2020 2:00 PM EST Temperature 36.3 C (97.4 F) 05/16/2020 2:00 PM EST Respiratory Rate 14 05/04/2020 1:08 PM EST Oxygen Saturation 100% 05/04/2020 1:08 PM EST Inhaled Oxygen Concentration - - Weight 131.9 kg (290 lb 12.6 oz) 05/04/2020 1:08 PM EST Height 177.8 cm (5' 10 ) 05/04/2020 1:08 PM EST Body Mass Index 41.72 05/04/2020 1:08 PM EST Plan of Treatment Health Maintenance Due Date Last Done Comments Hepatitis C Antibody 2010 HPV Vaccine (3 - 3-dose series) 05/05/2011 02/10/2011, 09/10/2010 Pap Smear 08/24/2017 08/24/2014, 08/24/2014 Tetanus (Td or Tdap) Booster 05/06/2022 05/06/2012, 06/18/2010, 08/14/2004 COVID-19 Vaccine (3 - 2025-26 season) 2024 09/18/2020, 08/23/2020 Influenza Vaccine (#1) 2024 9, 12/28/2012, 03/04/2012, Additional history exists Shingles (RZV) Vaccine (1 of 2) 2042 Hepatitis B (HBV) Vaccine Completed 1993, 02/12/1993, 1992 Hepatitis A (HAV) Vaccine Completed 02/10/2011, HIV Test Completed 03/04/2012 Tdap Booster Completed 05/06/2012, 06/18/2010 Mammography Discontinued Pneumococcal Vaccine(s) Aged Out No l onger eligible based on patient's age to complete this topic Procedures Procedure Name Priority Date/Time Associated Diagnosis Comments PAP SMEAR Routine 08/24/2014 10:55 AM EDT Vaginal discharge Urinary symptom or sign Abdominal pain, unspecified abdominal location Thoracic back pain, unspecified back pain laterality HIV-1/2 ANTIBODY Routine 03/04/2012 3:42 PM EST Vaginitis and vulvovaginitis, unspecified Supervision of normal first from Last 3 Months or Most Recently Relevant to Health Maintenance Results * PAP SMEAR (08/24/2014 10:55 AM EDT) CP AP TEST RESULT COMPONENT Done 08/24/2014 7:00 PM EDT [facility] ThinPrep (Cervical Thin Prep) 08/24/2014 10:55 AM EDT 08/24/2014 5:09 PM EDT us Nicholas Waters MD EC CP/AP ORDERABLE Final Resu lt [facility] [address] [place] [phone] * HIV-1/2 ANTIBODY (03/04/2012 3:42 PM EST) HIV-1/HIV-2 Antibody Non-Reacti ve (Non Reactive) [facility] BLOOD SPECIMEN / Unknown 03/04/2012 3:42 PM EST Narrative [facility] - 03/04/2012 10:13 PM EST HIV Information: [place] Rev. code 3701.243(E): This information has been disclosed to you from confidential records protected from disclosure by state law. You shall make no further disclosure of this information without the specific, written, and informed release of the individual to whom it pertains, or as otherwise permitted by state law. A general authorization for the release of medical or other information is not sufficient for the purpose of the release of HIV test results or diagnoses. us Nicholas Waters MD EC HIV/HEP/SYPH TESTING Final Result [facility] [address] [place] [phone] from Last 3 Months or Most Recently Relevant to Health Maintenance Insurance [employer] Care Teams Slate Picker Relationship Specialty Start Date End Date Navdeep Garcia MD [address] [place] [phone] PCP - General 02/18/10
--- OUTSIDE RECORDS SUMMARY | 2024-12-20 17:35 | XMS_ITS | Encounter Summary ---
Author Organization [facility] Address [address] [place] [address] Care Team Providers Care Visual Lead Name Role Phone Navdeep Garcia MD Unavailable [phone] Navdeep Garcia MD Primary Care Provider Encounter Details Date Type Department Care Team (Late st Contact Info) Description 07/27/1998 Office Visit [facility] Internal Medicine [address] [place] [phone] Betty Rosado MD [address] [place] [address] Social History Tobacco Use Types Packs/Day Years [...] on filedocumented in this encounter Care Teams Visual Lead Relationship Specialty Start Date End Date Navdeep Garcia MD [address] [place] [phone] PCP - Family Practice 08/17/06 0 Navdeep Garcia MD [address] [place] [phone] PCP - General 02/18/10 documented as of this encounter
--- OUTSIDE RECORDS SUMMARY | 2024-12-20 17:35 | XMS_ITS | Clinical Summary ---
Author Organization [facility] Address [address] [place] [address] Care Team Providers Care Master Glazier Name Role Phone Self Primary Care Provider Unavailabl e Allergies No known active allergies Medications buPROPion XL (WELLBUTRIN XL) 150 mg 24 hr tabletIndicatio ns:Major depressive disorder, recurrent episode, severe, without mention of psychotic behavior Take 1 tablet by mouth once daily. 30 tablet 1 10/20/2014 Active GABAPENTIN (NEURONTIN ORAL) Take by mouth. Active norgestimate 0.25 mg-ethinyl estradiol 35 mcg (SPRINTEC) 0.25-35 mg-mcg per tablet Take 1 tablet by mouth once daily. Active gabapentin (NEURONTIN) 400 mg capsule Take 1 capsule by mouth daily at bedtime. 30 capsule 0 01/16/2015 Active traZODone (DESYREL) 50 mg tablet Take 1 tablet by mouth at bedtime as needed. 30 tablet 0 01/16/2015 Active gabapentin (NEURONTIN) 100 mg capsule Take 1 capsule by mouth once daily. In the morning 30 capsule 0 01/16/2015 Active Active Problems No known active problems Social History Tobacco Use Types Packs/Day Years Used Date Smoking Tobacco: Every Day Alcohol Use Standard Drinks/Week Comments Yes 0 (1 standard drink = 0.6 oz pur e alcohol) socially Area Deprivation Index Answer Date Yousif rded National Score (1-100), lowe r number is lower risk 95 08/29/2023 State Score (1-10), lower number is lower risk 9 08/29/2023 Data from: https://www.neighborhoodatlas.[facility].edu/. Last address used for calculation [address] [place] [address] 08/29/2023 Comments No Sex and Gender Information Value Date Recorded Sex Assigned at Not on file Legal Sex Female 10:03 PM EST Gender Identity Not on file Sexual Orientation Not on file Last Filed Vital Signs Vital Sign Reading Time Taken Comments Blood Pressure 121/59 08/28/2023 3:33 PM EDT Pulse 107 08/28/2023 3:33 PM EDT Temperature 36.5 C (97.7 F) 08/28/2023 3:33 PM EDT Respiratory Rate 20 08/28/2023 3:33 PM EDT Oxygen Saturation 95% 08/28/2023 3:33 PM EDT Inhaled Oxygen Concentration - - Weight 85.9 kg (189 lb 6.4 oz) 01/12/2015 12:30 AM EDT Height 177.8 cm (5' 10 ) 01/12/2015 12:30 AM EDT Body Mass Index 27.18 01/12/2015 12:30 AM EDT Plan of Treatment Health Maintenance Due Date Last Done Comments Anxiety Screening 2010 Depression Screening 2010 HIV Screening 2010 Hepatitis C Screening 2010 HPV Vaccine (3 - 3-dose series) 05/05/2011 1, 09/10/2010 Cervical Cancer Screening 2013 DTaP,Tdap,Td Vaccine (8 - Td or Tdap) 05/06/2022 05/06/2012, 06/18/2010, 08/14/2004, Additional history exists Influenza Vaccine (#1) 2024 9, 12/28/2012, 03/04/2012, Additional history exists Hepatitis B Vaccine Completed 06/27/1993, 02/12/1993, 1992 Insurance [employer] [facility] MEDICAID [facility] MEDICAID Member Subscriber Plan / Payer (Ef fective 2022-Present) Name:Jessica Cerna Relation to Subscriber:Self Name:Jessica Cerna Licha Payer ID:[id number] (NAIC) Group ID:[id number] Type:Medicaid Address: [place] [id number] Care Teams Master Glazier Relationship Specialty Start Date End Date Self PCP - General Family Medicine 03/06/14
--- OUTSIDE RECORDS SUMMARY | 2024-12-20 17:35 | XMS_ITS | Encounter Summary ---
Author Organization [facility] Address [address] [place] [address] Care Team Providers Care Groundskeeper Porter Name Role Phone Navdeep Garcia MD Primary Care Provider Encounter Details Date Type Department Care Team (Late st Contact Info) Description 03/29/2021 Abstract PATIENT ACUITY SCORE Social History Tobacco Use Types Packs/Day Years [...] on filedocumented in this encounter Care Teams Groundskeeper Porter Relationship Specialty Start Date End Date Navdeep Garcia MD [address] [place] [id number] PCP - General 02/18/10 documented as of this encounter
[2024-12-20 17:53] LABS: Glucose Urine UA NEGATIVE (NEGATIVE)
[2024-12-20 18:08] LABS: Cast Seen? NONE SEEN #/LPF (NONE SEEN); Crystals Seen? None Seen #/HPF (None Seen); Urine Culture Indicated YES-FRMC
[2024-12-20 18:42] VITALS: BP 129/80; PULSE 87; O2SAT 99
--- NOTE | 2024-12-20 18:45 | US_ITS ---
The [address] [address] Patient Name: RONIT CELAYA MRN: [id number] date: 1990 Sex: F Assigned Patient Location: ED.MAIN Current Patient Location: ED.MAIN Accession/Order Number: [id number] Exam Date: 12/20/2024 19:40 Report Date: 12/20/2024 21:05 At the request of: ABHIJEET MICHEL Procedure: US pelvis transvaginal Transvaginal pelvic ultrasound INDICATION: Left-sided pelvic pain, history of ovarian cyst COMPARISON: None FINDINGS: Uterus 9.8 x 4.1 x 5.4 cm. Nabothian cysts. IUD within the fundus of the endometrium. Endometrium unremarkable in thickness measuring 6.2 mm. Right right and left ovaries measure 5.6 x 3.8 x 4.2 cm and 3.4 x 2.4 x 3.2 cm respectively. Right sided cysts 2.7 x 2.6 x 2.9 cm in size. Additional right-sided cysts measuring 4.1 x 2.0 x 2.2 cm in size. No evidence of ovarian torsion. US/US pelvis transvaginal IMPRESSION: Negative for ovarian torsion. Right-sided ovarian cysts up to 4.1 cm size, these are likely physiologic. Impression dictated by: Keven Coleman M.D. 12/20/2024 9:05 PM Dictation Location: [place] [address] Electronically authenticated by: [id number] Y Date: 12/20/2024 21:05
[2024-12-20 18:51] LABS: HCG Qualitative Urine* NEGATIVE (NEGATIVE)
[2024-12-20] MEDS: 0.9 % SODIUM CHLORIDE 1,000 ML 100 ML IV (19:09)
[2024-12-20] MEDS: KETOROLAC TROMETHAMINE 30 MG/ML VIAL 15 MG IVP (19:10)
[2024-12-20 19:15] LABS: Hematocrit 39.2 % (36.0-48.0); Hemoglobin 13.4 g/dL (12.0-16.0); Immature Granulocytes Abs Auto 0.03 10^3/uL (0.00-0.03); Immature Granulocytes Pct Auto 0.3 % (0.0-0.5); Lymphocytes Absolute Auto 3.8 10^3/uL (1.2-3.8); Mean Corpuscular HGB Conc 34.2 g/dL (29.9-35.2); Mean Corpuscular Hemoglobin 28.9 pg (26.7-34.0); Mean Corpuscular Volume 84.7 fL (81.0-99.0); Platelet Count 306 10^3/uL (150-450); Red Blood Count 4.63 10^6/uL (4.20-5.40); White Blood Count 10.7 10^3/uL (4.0-11.0)
[2024-12-20 19:33] LABS: Alanine Aminotransferase 31 U/L (14-59); Albumin Globulin Ratio 1.0; Albumin Level 3.3 g/dL (3.4-5.0); Alkaline Phosphatase 76 U/L (46-116); Anion Gap 11.0; Aspartate Amino Transferase 13 U/L (15-37); Blood Urea Nitrogen 10.0 mg/dL (7.0-18.0); Calcium 8.5 mg/dL (8.5-10.1); Carbon Dioxide 25.7 mmol/L (21.0-32.0); Chloride 105 mmol/L (98-107); Estimated GFR (African America >60 (>=60 mL/min/1.73m^2); Estimated GFR (Non-African Ame >60 (>=60 mL/min/1.73m^2); Globulin 3.3 g/dL; Glucose 92 mg/dL (74-106); Potassium 3.7 mmol/L (3.5-5.1); Sodium 138 mmol/L (136-145); Total Protein 6.6 g/dL (6.4-8.2)
--- NOTE | 2024-12-20 21:27 | ED_ITS ---
HPI - Abdominal Pain General Chief Complaint: Abdominal Pain Stated Complaint: ABDOMINAL PAIN/ LIGHT HEADED Time Seen by Provider: 12/20/24 18:38 Source: patient Mode of arrival: walk-in History of Present Illness HPI narrative: 34-year-old female presents to the ED with lower abdominal pain. She has a known history of ovarian cysts but has never had surgery for them. She was supposed to follow up with gynecology but has not yet done so. Patient is and feels confident she is not . She reports mild vaginal discharge, which she describes as baseline, with no foul odor. She denies dysuria, abnormal bowel movements, fever, nausea, or vomiting. Pain does not improve or worsen with position, activity, or oral intake. She expresses concern about possible ovarian torsion. Related Data Allergies Allergy/AdvReac Type Severity Reaction Status Date / Time topiramate Allergy Severe sensory Verified 12/20/24 16:48 problems PFSH PFSH Social History Little interest or pleasure in doing things: not at all Feeling down, depressed, or hopeless: not at all Exam Narrative Exam Narrative: General: Pleasant, alert, and oriented, appears mildly uncomfortable. Vitals: Stable, afebrile. Cardiac/Respiratory: Heart and lung sounds normal. Abdomen: Soft, tender in lower abdomen without rebound or guarding. No distension or peritoneal signs. Pelvic Exam: Deferred at patient?s request as discharge is baseline for her. Extremities/Neuro: Normal strength and sensation. Constitutional Vital Signs, click to edit/add: Last Vital Signs Temp 98.9 F 12/20/24 16:42 Pulse 69 12/20/24 21:32 Resp 14 12/20/24 21:32 BP 124/84 12/20/24 21:32 Pulse Ox 100 12/20/24 21:32 O2 Del Method Room Air 12/20/24 21:32 Course Vital Signs Vital signs: Vital Signs Temperature 98.9 F 12/20/24 16:42 Pulse Rate 95 H 12/20/24 16:42 Respiratory Rate 18 12/20/24 16:42 Blood Pressure 107/71 12/20/24 16:42 Pulse Oximetry 97 12/20/24 16:42 Oxygen Delivery Method Room Air 12/20/24 16:42 Temperature 98.9 F 12/20/24 16:42 Pulse Rate 69 12/20/24 21:32 Respiratory Rate 14 12/20/24 21:32 Blood Pressure 124/84 12/20/24 21:32 Pulse Oximetry 100 12/20/24 21:32 Oxygen Delivery Method Room Air 12/20/24 21:32 MDM - Abdominal Pain MDM Narrative Medical decision making narrative: Differential diagnosis considered included ovarian torsion, ruptured ovarian cyst, pelvic inflammatory disease, urinary tract infection, and nonspecific abdominal pain. Ultrasound revealed ovarian cyst but no torsion, which is reassuring. Urinalysis showed leukocytes and bacteria but is likely contaminated from vaginal leukorrhea given lack of dysuria or systemic symptoms. Urine culture was sent, and patient prefers to wait for results prior to starting antibiotics. CBC, CMP, and H&H were all within normal limits. Patient declined further pain medication. Given reassuring labs, normal vital signs, and lack of torsion or peritoneal signs, patient is stable for discharge. She was advised to follow up with gynecology for ongoing management of ovarian cysts, to return for worsening pain, fever, vomiting, new vaginal discharge, or any other concerning symptoms. Patient verbalized understanding and agreed with plan. Medical Records Attestation: I reviewed the patient's medical records. Lab Data Attestation: I reviewed the patient's lab results. Labs: Lab Results 12/20/24 12/20/24 Range/Units 16:49 19:00 WBC 10.7 (4.0-11.0) 10^3/uL RBC 4.63 (4.20-5.40) 10^6/uL Hgb 13.4 (12.0-16.0) g/dL Hct 39.2 (36.0-48.0) % MCV 84.7 (81.0-99.0) fL MCH 28.9 (26.7-34.0) pg MCHC 34.2 (29.9-35.2) g/dL RDW 12.7 (11.0-15.0) % Plt Count 306 (150-450) 10^3/uL MPV 9.8 (9.5-13.5) fL Neut % (Auto) 56.3 (43.0-75.0) % Lymph % (Auto) 36.0 (20.5-60.0) % [place]bot % (Auto) 5.8 (1.7-12.0) % Eos % (Auto) 0.7 L (0.9-7.0) % Baso % (Auto) 0.9 (0.2-2.0) % Neut # (Auto) 6.0 (1.4-6.5) 10^3/uL Lymph # (Auto) 3.8 (1.2-3.8) 10^3/uL [place]bot # (Auto) 0.6 (0.3-0.8) 10^3/uL Eos # (Auto) 0.1 (0.0-0.7) 10^3/uL Baso # (Auto) 0.1 (0.0-0.1) 10^3/uL Abs Immat Gran (auto) 0.03 (0.00-0.03) 10^3/uL Imm/Tot Granulo (auto) 0.3 (0.0-0.5) % Sodium 138 (136-145) mmol/L Potassium 3.7 (3.5-5.1) mmol/L Chloride 105 (98-107) mmol/L Carbon Dioxide 25.7 (21.0-32.0) mmol/L Anion Gap 11.0 BUN 10.0 (7.0-18.0) mg/dL Creatinine 0.93 (0.55-1.02) mg/dL Est GFR ( Amer) >60 (>=60 mL/min/1.73m^2) Est GFR (Non-Af Amer) >60 (>=60 mL/min/1.73m^2) BUN/Creatinine Ratio 10.8 Glucose 92 (74-106) mg/dL Calcium 8.5 (8.5-10.1) mg/dL Total Bilirubin 0.2 (0.2-1.0) mg/dL AST 13 L (15-37) U/L ALT 31 (14-59) U/L Alkaline Phosphatase 76 (46-116) U/L Total Protein 6.6 (6.4-8.2) g/dL Albumin 3.3 L (3.4-5.0) g/dL Globulin 3.3 g/dL Albumin/Globulin Ratio 1.0 Urine Color Lt. yellow (YELLOW) Urine Clarity Clear (CLEAR) Urine pH 6.0 (5.0-9.0) Ur Specific [place] 1.025 (1.005-1.025) Urine Protein Negative (NEG/TRACE) mg/dL Urine Glucose (UA) Negative (NEGATIVE) mg/dL Urine Ketones Negative (NEGATIVE) mg/dL Urine Occult Blood Negative (NEGATIVE) Urine Nitrite Negative (NEGATIVE) Urine Bilirubin Negative (NEGATIVE) Urine Urobilinogen 0.2 (0.2-1.0) EU/dL Ur Leukocyte Esterase Moderate A (NEGATIVE) Urine RBC 0-2 (0-2) #/HPF Urine WBC 2-5 A (NONE SEEN) #/HPF Ur Squamous Epith Cells Moderate A (NONE/RARE) #/LPF Urine Crystals None seen (None Seen) #/HPF Urine Bacteria Moderate A (NONE SEEN) #/HPF Urine Casts None seen (NONE SEEN) #/LPF Urine Mucus Trace A (NONE SEEN) Ur Culture Indicated? [place] [place] HCG, Qual Negative (NEGATIVE) Imaging Data us pelvis: Attestation: I have reviewed the pertinent imaging results. Radiologist's impression: ITS Impressions Transvaginal US 12/20/24 18:45 IMPRESSION: Negative for ovarian torsion. Right-sided ovarian cysts up to 4.1 cm size, these are likely physiologic. Impression dictated by: Keven Coleman M.D. 12/20/2024 9:05 PM Dictation Location: [facility] Electronically authenticated by: [id number] Y Date: 12/20/2024 21:05 Discharge Plan Discharge Chief Complaint: Abdominal Pain Clinical Impression: Ovarian cyst Patient Disposition: Home, Self-Care Time of Disposition Decision: 21:27 Condition: Good Print Language: Urdu Instructions: Ovarian Cyst (ED) Additional Instructions: Discharge Instructions ? Ovarian Cyst You were evaluated today for pelvic pain, and your workup showed an ovarian cyst. Ovarian cysts are fluid-filled sacs that form on the ovary. They are common and usually harmless. Most cysts resolve on their own without treatment. What to Do at Home: * Pain Control: You may take acetaminophen (Tylenol) or ibuprofen (Motrin/Advil) as needed for pain, unless told otherwise by your doctor. * Rest: Light activity is okay, but avoid strenuous exercise or heavy lifting until your pain improves. * Hydration: Drink plenty of fluids to stay well-hydrated. What to Watch For: Call your doctor or return to the ER immediately if you develop: * Sudden, severe pelvic or abdominal pain * Pain with vomiting or inability to keep fluids down * Dizziness, fainting, or feeling very weak * Fever or chills * Vaginal bleeding that is heavy or unusual for you Follow-Up: * Follow up with your computer lab para professional or primary care provider as instructed for further evaluation and monitoring. * You may need a repeat ultrasound in a few weeks to check if the cyst has gone away. Referrals: [facility] [Primary Care Provider] - 1 week Discharge Date/Time: 12/20/24 21:34
[2024-12-20 21:32] VITALS: BP 124/84; PULSE 69; O2SAT 100
== END 2024-12-20 21:34 | disposition home or self-care (01) ==
PROVIDERS: Physician Assistant; Emergency Provider Emergency Medicine
DX: N83.201 Unspecified ovarian cyst, right side (principal)
CPT/HCPCS: 36415; 76830; 80053; 81001; 84703; 85025; 87086; 96374; 99285; J1885